=== PATIENT | female | born 1985 | race Caucasian/White ===

== ENCOUNTER 2016-09-20 14:24 | Emergency (ER) | payer OTHER ==
[~2016-09-20] VITALS: Ht 160 cm; Wt 70.2 kg
[~2016-09-20 14:24] MED LIST: ENDOCET 5-3251 EACH PO; Motrin PO
[2016-09-20 14:57] LABS: HEMATOCRIT 34.2 % (36.0-46.0); MCH 29.1 PG (29.0-34.0); MCV 88.1 FL (83-99); MEAN PLAT.VOLUME 10.7 uM^3 (9.5-12.4); PLATELET COUNT 254 K/uL (156-360); RBC DIS.WIDTH-CV 12.4 % (11.8-14.6); RBC DIS.WIDTH-SD 39.8 % (39-53); RED BLOOD COUNT 3.88 M/uL (3.80-5.20); WHITE BLOOD COUNT 11.6 K/uL (4.1-10.2)
[2016-09-20] MEDS ORDERED: ONDANSETRON ODT8 MG PO (15:04)
[2016-09-20] MEDS ORDERED: PRENA1 CHEW TA1.4 MG PO (15:04)
[2016-09-20 15:08] LABS: CHLORIDE 107 mEq/L (99-109); POTASSIUM 3.6 mEq/L (3.7-5.4); SODIUM 136 mEq/L (136-147)
[2016-09-20 15:10] LABS: GLUCOSE 93 mg/dL (70-99)
[2016-09-20 15:11] LABS: ANION GAP 10 MEQ/L (2-14)
[2016-09-20 15:14] LABS: GFR ESTIMATE (CALCULATED) > 59 mL/min/
[2016-09-20 15:15] LABS: UREA NITROGEN (BUN) 7 mg/dL (9-23)
[2016-09-20 16:02] LABS: TROP-I INTERPRETATION NEGATIVE; TROPONIN-I < 0.01 ng/mL (0.0-0.30)
[2016-09-20 16:28] LABS: ADD MIUA? YES; BILIRUBIN NEGATIVE; BLOOD NEGATIVE; COLOR YELLOW ((YELLOW)); GLUCOSE (STRIP) NEGATIVE; KETONES 80; LEUKOCYTES NEGATIVE; NITRITE NEGATIVE; PROTEIN (STRIP) NEGATIVE; SPECIFIC GRAVITY 1.017 (1.000-1.030); UROBILINOGEN 0.2 MG/DL (0.2-1.0)
[2016-09-20 16:44] LABS: BACTERIA RARE /HPF; EPITHELIAL CELLS RARE /HPF; MUCUS TRACE /LPF; RED BLOOD CELLS 0-5 /HPF (0-5); UCUL ADDED? NO; WHITE BLOOD CELLS 0-5 /HPF (0-5)
[2016-09-20 16:51] LABS: CASTS NONE SEEN /LPF; CRYSTALS NONE SEEN
[2016-09-20] MEDS ORDERED: MORPHINE SULFAT15 MG PO (17:00)
[2016-09-20 17:37] VITALS: BP 96/56
== END 2016-09-20 17:44 | disposition home or self-care (01) ==
LOC: EME 14:24
PROVIDERS: Emergency Medicine
DX: O99.89 Other specified diseases and conditions complicating pregnancy, childbirth and the puerperium (principal); R10.31 Right lower quadrant pain; D72.829 Elevated white blood cell count, unspecified; E87.6 Hypokalemia; Z3A.12 12 weeks gestation of pregnancy
CPT/HCPCS: 74181; 80048; 81003; 84484; 85027; 99281; 99285; J2270; J2765; J7030

== ENCOUNTER 2017-03-11 09:19 | Inpatient (IN) | payer OTHER ==
[~2017-03-11] VITALS: Ht 160 cm; Wt 83.0 kg
[~2017-03-11 09:19] MED LIST changes: +MORPHINE SULFAT15 MG PO; +ONDANSETRON ODT8 MG PO; +PRENA1 CHEW TA1.4 MG PO
[2017-03-11 09:38] VITALS: BP 113/70
[2017-03-11 12:48] LABS: EOSINOPHIL (%) 0.6 % (0-5); EOSINOPHIL COUNT 0.1 K/uL (0-0.3); HEMATOCRIT 31.1 % (36.0-46.0); IMMATURE GRANULOCYTE (%) 0.9 % (0.0-0.7); IMMATURE GRANULOCYTE COUNT 0.1 K/uL; INSTRUMENT ABS NEUTROPHIL CT 9.3 K/uL; LYMPHOCYTE COUNT 1.9 K/uL (1.0-2.8); MCH 28.9 PG (29.0-34.0); MCHC 31.8 G/DL (30.0-36.0); MCV 90.7 FL (83-99); MEAN PLAT.VOLUME 11.8 uM^3 (9.5-12.4); MONOCYTE (%) 5.7 % (3-12); MONOCYTE COUNT 0.7 K/uL (0-0.8); NEUTROPHIL (%) 76.7 % (45-76); NEUTROPHIL COUNT 9.3 K/uL (1.8-6.4); PLATELET COUNT 163 K/uL (156-360); RBC DIS.WIDTH-CV 14.7 % (11.8-14.6); RBC DIS.WIDTH-SD 48.5 % (39-53); RED BLOOD COUNT 3.43 M/uL (3.80-5.20); WHITE BLOOD COUNT 12.1 K/uL (4.1-10.2)
[2017-03-11 15:04] VITALS: BP 117/61
[2017-03-11] MEDS ORDERED: IBUPROFEN800 MG PO (17:05)
[2017-03-11] MEDS ORDERED: PERCOCET 5/31 TABLET PO (17:05)
[2017-03-11 19:45] VITALS: BP 117/62
[2017-03-12 06:58] LABS: EOSINOPHIL (%) 0 % (0-5); IMMATURE GRANULOCYTE (%) 1.2 % (0.0-0.7); IMMATURE GRANULOCYTE COUNT 0.3 K/uL; INSTRUMENT ABS NEUTROPHIL CT 19.8 K/uL; LYMPHOCYTE COUNT 1.7 K/uL (1.0-2.8); MCH 30.3 PG (29.0-34.0); MCHC 33.1 G/DL (30.0-36.0); MCV 91.5 FL (83-99); MEAN PLAT.VOLUME 12.1 uM^3 (9.5-12.4); MONOCYTE (%) 4.1 % (3-12); MONOCYTE COUNT 0.9 K/uL (0-0.8); NEUTROPHIL COUNT 19.8 K/uL (1.8-6.4); PLATELET COUNT 180 K/uL (156-360); RBC DIS.WIDTH-CV 14.3 % (11.8-14.6); RED BLOOD COUNT 2.84 M/uL (3.80-5.20); WHITE BLOOD COUNT 22.7 K/uL (4.1-10.2)
[2017-03-13 23:01] VITALS: BP 123/64
[2017-03-14 07:50] VITALS: BP 123/79
[2017-03-14 15:12] VITALS: BP 128/72
== END 2017-03-15 12:02 | disposition home or self-care (01) | DRG 765 ==
LOC: LDRP-OP 09:19 → 2WEST 09:20 → LDRP-OP 05-06 10:47
PROVIDERS: Obstetrics & Gynecology Gynecology
PROC: 10D00Z1 Extraction of Products of Conception, Low, Open Approach (ICD-10-PCS; principal; 2017-03-11)
DX: O34.219 Maternal care for unspecified type scar from previous cesarean delivery (principal); O60.14X0 Preterm labor third trimester with preterm delivery third trimester, not applicable or unspecified; O30.043 Twin pregnancy, dichorionic/diamniotic, third trimester; O99.02 Anemia complicating childbirth; D50.9 Iron deficiency anemia, unspecified; Z37.2 Twins, both liveborn; Z3A.36 36 weeks gestation of pregnancy
CPT/HCPCS: 85025; 86850; 86900; 86901; J0690; J0702; J1100; J1885; J2270; J2274; J2405; J3010; J3105; J7120

== ENCOUNTER 2017-10-07 15:06 | Emergency (ER) | payer OTHER ==
[~2017-10-07] VITALS: Ht 157.5 cm; Wt 69.2 kg
[~2017-10-07 15:06] MED LIST changes: +IBUPROFEN800 MG PO; +PERCOCET 5/31 TABLET PO
[2017-10-07 15:39] LABS: HEMATOCRIT 36.5 % (36.0-46.0); HEMOGLOBIN 12.2 G/DL (11.9-15.5); MCH 29.4 PG (29.0-34.0); MCHC 33.4 G/DL (30.0-36.0); PLATELET COUNT 213 K/uL (156-360); RBC DIS.WIDTH-CV 13.2 % (11.8-14.6); RBC DIS.WIDTH-SD 42.9 % (39-53); RED BLOOD COUNT 4.15 M/uL (3.80-5.20); WHITE BLOOD COUNT 6.9 K/uL (4.1-10.2)
[2017-10-07 15:48] LABS: ALBUMIN 4.2 g/dL (3.2-4.8); CHLORIDE 107 mEq/L (99-109); POTASSIUM 4.1 mEq/L (3.7-5.4); SODIUM 140 mEq/L (136-147)
[2017-10-07 15:50] LABS: GLUCOSE 110 mg/dL (70-99); TOTAL PROTEIN 7.3 g/dL (6.4-8.3)
[2017-10-07 15:52] LABS: TOTAL BILIRUBIN 0.3 mg/dL (0.0-1.0)
[2017-10-07 15:54] LABS: ALKALINE PHOSPHATASE 130 IU/L (3-129); CREATININE 0.8 mg/dL (0.6-1.3); GFR ESTIMATE (CALCULATED) > 59 mL/min/
[2017-10-07 15:55] LABS: UREA NITROGEN (BUN) 14 mg/dL (9-23)
[2017-10-07 15:56] LABS: AST (GOT) 52 IU/L (2-34)
[2017-10-07 15:57] LABS: ALT (GPT) 63 IU/L (3-49)
[2017-10-07 16:03] LABS: QUANTITATIVE HCG < 4.0 MIU/ML
[2017-10-07 17:02] LABS: LIPASE 38 U/L (1.0-51.0)
[2017-10-07 18:30] LABS: APPEARANCE CLEAR ((CLEAR)); BILIRUBIN NEGATIVE; BLOOD NEGATIVE; COLOR YELLOW ((YELLOW)); GLUCOSE (STRIP) NEGATIVE; KETONES NEGATIVE; LEUKOCYTES NEGATIVE; NITRITE NEGATIVE; PROTEIN (STRIP) NEGATIVE; SPECIFIC GRAVITY 1.027 (1.000-1.030); UCUL ADDED? NO; UROBILINOGEN 0.2 MG/DL (0.2-1.0)
[2017-10-07] MEDS ORDERED: IBU800 MG PO (20:16)
[2017-10-07 21:15] VITALS: BP 145/82
[2017-10-07 21:44] LABS: CANDIDA DNA PROBE NEGATIVE; GARDNERELLA DNA PROBE NEGATIVE; TRICHOMONAS DNA PROBE NEGATIVE
== END 2017-10-07 21:15 | disposition home or self-care (01) ==
LOC: EME 15:06
PROVIDERS: Physician Assistant
DX: N83.202 Unspecified ovarian cyst, left side (principal); Z97.5 Presence of (intrauterine) contraceptive device; Z88.8 Allergy status to other drugs, medicaments and biological substances
CPT/HCPCS: 76856; 80053; 81003; 83690; 84702; 85027; 87480; 87510; 87660; 99281; 99284; J1885